=== PATIENT | female | born 1955 | race Caucasian/White ===

== ENCOUNTER 2018-06-20 19:02 | Emergency (ER) | payer BC ==
[2018-06-20] MEDS ORDERED: NS 0.9% 1000 ML* 1,000 ML IV ONE (20:21)
--- NOTE | 2018-06-20 20:24 | ED ---
Abdominal Pain/Female - HPI Summary HPI Summary: A 62 y/o female presents to ED c/o right-sided abdominal pain reaching 8/10 in severity. As per triage, "Pt c/o RUQ and RLQ abdominal pain for approximately 2 months. States she fell months ago and was relating the pain to her fall. States pain has now progressively gotten worse causing her to lose sleep last night". According to the patient she has been experiencing the intermittent abdominal pain for the past 1.5 days and describes it as a burning sensation. Patient denies any nausea, vomiting, diarrhea, constipation, chest pain or SOB. She noted that the pain does come in waves. She noted that the pain sometimes goes to her shoulder, but she has been experiencing that since she was diagnosis with mesenteric breast cancer. PMHx of mesenteric breast cancer, denies any renal calculi, cholecystectomy. - History of Current Complaint Chief Complaint: EDAbdPain Stated Complaint: RT SIDE ABD PAIN Time Seen by Provider: 06/20/18 20:00 Hx Obtained From: Patient Onset/Duration: Sudden Onset, Lasting Days, Still Present Timing: Intermittent Episode Lasting Severity Initially: Severe Severity Currently: Severe Pain Intensity: 8 Pain Scale Used: 0-10 Numeric Location: Other - Right-sided Radiates: Yes Radiates to: Back Character: Burning Aggravating Factor(s): Nothing Alleviating Factor(s): Nothing Associated Signs and Symptoms: Positive: Back Pain. Negative: Chest Pain, Constipation, Nausea, Vomiting, Diarrhea Allergies/Adverse Reactions: Allergies Allergy/AdvReac Type Severity Reaction Status Date / Time No Known Allergies Allergy Verified 06/20/18 19:07 Home Medications: Home Medications Ciprofloxacin TAB* [Cipro 500 MG TAB*] 500 mg PO BID 06/20/18 [History Confirmed 06/20/18] PMH/Surg Hx/FS Hx/Imm Hx Endocrine/Hematology History: Reports: Hx Thyroid Disease Denies: Hx Diabetes, Hx Systemic Lupus Erythematosus Cardiovascular History: Reports: Hx Hypertension Denies: Hx Congestive Heart Failure, Hx Pacemaker/ICD Respiratory History: Reports: Hx Asthma History: Denies: Hx Dialysis, Hx Renal Disease Musculoskeletal History: Reports: Hx Arthritis, Hx Back Problems Denies: Hx Rheumatoid Arthritis, Hx Osteoporosis Comment Only: Other Musculoskeletal History - flat feet Sensory History: Reports: Hx Contacts or Glasses Denies: Hx Hearing Aid Opthamlomology History: Reports: Hx Contacts or Glasses Psychiatric History: Denies: Hx Panic Disorder - Cancer History Cancer Type, Location and Year: Breast cancer dx 1999, reoccurance bone 2013 Hx Chemotherapy: Yes - ORAL EVERYDAY Hx Radiation Therapy: Yes - Surgical History Surgery Procedure, Year, and Place: 1999 LEFT MASTECTOMY w/ reconstruction ( SILICONE IMPLANT). 2006 HYSTERECTOMY. TONSILECTOMY Hx Anesthesia Reactions: No Infectious Disease History: No Infectious Disease History: Denies: Hx Clostridium Difficile, Hx Hepatitis, Hx Human Immunodeficiency Virus (HIV), Hx of Known/Suspected MRSA, Hx Shingles, Hx Tuberculosis, Hx Known/ Suspected VRE, Hx Known/Suspected VRSA, History Other Infectious Disease, Traveled Outside the [place] in Last 30 Days - Family History Known Family History: Positive: Cardiac Disease, Hypertension, Diabetes, Other - [place], CVA, BREAST CANCER, PANCREATIC CANCER - Social History Alcohol Use: Rare Substance Use Type: Reports: None Smoking Status (MU): Never Smoked Tobacco Review of Systems Negative: Fever Negative: Chest Pain Negative: Shortness Of Breath Positive: Abdominal Pain, Other - NEGATIVE: Constipation. Negative: Vomiting, Diarrhea, Nausea All Other Systems Reviewed And Are Negative: Yes Physical Exam - Summary Physical Exam Summary: VITAL SIGNS: Reviewed. GENERAL: Patient is a well-developed and nourished female who is lying comfortable in the stretcher. Patient is not in any acute respiratory distress. HEAD AND FACE: Normocephalic and atraumatic. EYES: PERRLA, EOMI x 2, No injected conjunctiva. EARS: Hearing grossly intact. Ear canals and tympanic membranes are WNL. MOUTH: Oropharynx within normal limits. NECK: Supple, trachea is midline, no adenopathy, no JVD. CHEST: Symmetric, no tenderness at palpation LUNGS: Clear to auscultation bilaterally. No wheezing or crackles. CVS: RRR, S1 and S2 present, no murmurs or gallops appreciated. ABDOMEN: Soft, RUQ tenderness. No signs of distention. Positive bowel sounds. No rebound no guarding, and no masses palpated. No abdominal bruit or pulsations. EXTREMITIES: FROM in all major joints, no edema, no cyanosis or clubbing. NEURO: Alert and oriented x 3. No acute neurological deficits. Speech is normal. SKIN: Dry and warm Triage Information Reviewed: Yes Vital Signs On Initial Exam: Initial Vitals Temp Pulse Resp BP Pulse Ox 98.2 F 106 16 164/83 98 06/20/18 19:04 06/20/18 19:04 06/20/18 19:04 06/20/18 19:04 06/20/18 19:04 Vital Signs Reviewed: Yes Diagnostics - Vital Signs Vital Signs Temp Pulse Resp BP Pulse Ox 06/20/18 19:04 98.2 F 106 16 164/83 98 - Laboratory Result Diagrams: 06/20/18 20:34 06/20/18 20:34 Lab Statement: Any lab studies that have been ordered have been reviewed, and results considered in the medical decision making process. - EKG 2041 Cardiac Rate: NL - 94 BPM EKG Rhythm: Sinus Rhythm EKG Interpretation: NO ST ELEVATIONS Abdominal Pain Fem Course/Dx - Course Course Of Treatment: This patient is a 62-year-old female who presents to the emergency department with a chief complaint of having right upper quadrant pain with radiation to the right lower abdomen and to the back. The patient has been present for approximately 2 months but in getting worse. Patient has past medical history significant for a stage IV breast cancer, spinal metastasis, hypertension, hypothyroidism and asthma. The patient denies any fever, positive nausea without vomiting. Denies any diarrhea or constipation. Blood work shows wbc's of 2.6, glucose 123, CRP of 8.07 and amylase of 21. The right upper quadrant ultrasound is pending. At this time the patient will be signed out to Dr. Hess at shift change. The patient is stable hemodynamically stable, she did not require any pain medications, she is alert and oriented 3. If the ultrasound is negative Dr. Hess will reassess the patient for the need of abdominopelvic CT or discharged home with follow-up with PCP as an outpatient. - Diagnoses Differential Diagnosis: Positive: Gall Bladder Disease Provider Diagnoses: Right lateral abdominal pain Discharge - Sign-Out/Discharge Documenting (check all that apply): Sign-Out Patient Signing out patient TO: Henry Buckley Receiving patient FROM: Emeterio Bloom - Discharge Plan Condition: Good Disposition: HOME Prescriptions: Hydrocodone/Acetaminophen [Vicodin 5-300 mg Tablet] 1 each PO Q4HR PRN #12 tablet MDD 4 tabs PRN Reason: Pain Patient Education Materials: Abdominal Pain (ED) Referrals: Terri Mejía MD [Primary Care Provider] - Additional Instructions: I would recommend asking your oncologist about getting a CCK HIDA scan to see if you have a functional gallbladder problem causing her pain. I have prescribed some painkillers to help in the interim. - Billing Disposition and Condition Condition: GOOD Disposition: Home - Attestation Statements Document Initiated by Bela: Yes Documenting Scribe: Anand Hermosillo Provider For Whom Bela is Documenting (Include Credential): Emeterio Bloom MD Scribe Attestation: I, Anand Hermosillo, scribed for Emeterio Bloom MD on 06/21/18 at 1125. Scribe Documentation Reviewed: Yes Provider Attestation: The documentation as recorded by the Anand arroyo accurately reflects the service I personally performed and the decisions made by me, Emeterio Bloom MD
[2018-06-20 20:41] LABS: ABS Basophils 0 10^3/ul (0-0.2); ABS Eosinophils 0 10^3/ul (0-0.6); ABS Lymphocytes 0.7 10^3/ul (1.0-4.8); ABS Monocytes 0.3 10^3/ul (0-0.8); ABS Neutrophils 1.6 10^3/ul (1.5-7.7); ABS Nucleated RBC 0 10^3/ul; Eosinophil % 1.3 % (0-6); Hematocrit 36 % (35-47); Hemoglobin 12.7 g/dl (12.0-16.0); Lymphocyte % 25.8 % (25-47); Mean Corpuscular HGB Conc 35 g/dl (31-36); Mean Corpuscular Hemoglobin 33 pg (27-31); Mean Corpuscular Volume 95 fL (80-97); Mean Platelet Volume 7.8 um3 (7.4-10.4); Nucleated Red Blood Cells % 0.4; Platelet Count 225 10^3/ul (150-450); Red Cell Distribution Width 16 % (10.5-15); White Blood Count 2.6 10^3/ul (3.5-10.8)
[2018-06-20 21:00] LABS: EGFR Non-African American 62.2 (>60)
--- NOTE | 2018-06-20 22:52 | RAD ---
EXAM: US Abdomen Limited, Right Upper Quadrant EXAM DATE/TIME: 06/20/18 (9:07pm) CLINICAL HISTORY: 62 year old female with epigastric / RUQ pain TECHNIQUE: Real-time ultrasound of the right upper quadrant with image documentation COMPARISON: US ABDOMEN (limited) of 03/26/18 FINDINGS: The liver is normal in size (16.6 cm length), with probable fatty infiltration. The gallbladder has normal wall thickness (1.8 mm), with no definite stones nor sludge seen. A non-shadowing mural polyp (11 mm size) is again seen along the posterior gallbladder wall (also noted 3 months ago). No pericholecystic fluid is appreciated. The sonographic Kelly's sign is reported to be (+). The CBD is top normal in caliber (4-5 mm diameter). The pancreas appears unremarkable (tail region obscured by bowel gas). The right kidney measures 11.1 cm in length, with no hydronephrosis appreciated. No ascites is seen. IMPRESSION: No definite evidence of acute cholecystitis. No gallstones nor sludge. Posterior gallbladder wall polyp (11 mm size) again seen. The sonographic Kelly's sign is reported to be (+) --- this is of unclear significance. See additional comments above.
--- NOTE | 2018-06-20 23:07 | PN ---
Progress Note - Progress Note Date of Service: 06/20/18 Note: SIGN-OUT RECEIVED FROM DR. WOOD AT SHIFT CHANGE PENDING GALLBLADDER U/S RESULTS. 2304: ED provider at bedside A 62 y/o F presents to ED with c/o 8 out of 10, acute on chronic, R-sided abd pain. Discussing U/S results with pt. DIAGNOSTICS: Gallbladder U/S as read by radiologist: IMPRESSION: No definite evidence of acute cholecystitis.No gallstones nor sludge. Posterior gallbladder wall polyp ( 11 mm size) again seen. The sonographic Kelly's sign is reported to be (+) --- this is of unclear significance. See additional comments above. ED provider has reviewed this report. COT: DX: DISPO: This is scribe, Malik Hilario, documenting for attending Dr. Henry Buckley MD. I, Dr. Buckley, personally performed the services described in this documentation as scribed in my presence and it is both accurate and complete. <Malik Hilario - Last Filed: 06/20/18 23:16> - Progress Note Note: Treatment: The patient is still having some right-sided abdominal pain. The history she is his knee is suggestive of biliary colic, but she does have a ultrasound showing no stones or other gallbladder abnormalities of note. She could have acalculous cholecystitis and I explained this entity to her and recommended that she ask her doctor about getting a CCK HIDA scan. I will order some pain medication for the interim. Diagnosis: Abdominal pain, possible acalculous cholecystitis Disposition: Home <Henry Buckley - Last Filed: 06/21/18 06:37>
[2018-06-20] MEDS ORDERED: oxyCODONE/Acetamin 5/325 MG* TAB PO ONE (23:15)
[2018-06-20 23:35] VITALS: BP 149/82
== END 2018-06-20 23:34 | disposition home or self-care (01) ==
LOC: ED 19:02
DX: R10.84 Generalized abdominal pain (principal); Z85.3 Personal history of malignant neoplasm of breast
CPT/HCPCS: 36415; 76705; 80053; 82150; 83605; 83690; 85025; 86140; 93005; 96360; 99282; A9270-GY

== ENCOUNTER 2021-07-10 16:41 | Inpatient (IN) ==
[2021-07-10] MEDS ORDERED: Clindamycin 900 MG/D5W BAG 900 MG/50 ML BAG IVPB ONE (18:02)
[2021-07-10 19:16] LABS: Hematocrit 24 % (35-47); Hemoglobin 7.5 g/dL (12.0-16.0); Mean Corpuscular HGB Conc 32 g/dL (31-36); Mean Corpuscular Hemoglobin 27 pg (27-31); Mean Corpuscular Volume 85 fL (80-97); Mean Platelet Volume 7.1 fL (7.4-10.4); Platelet Count 468 10^3/uL (150-450); Red Blood Count 2.78 10^6 /uL (3.70-4.87); Red Cell Distribution Width 20 % (10-15); White Blood Count 12.6 10^3/uL (3.5-10.8)
[2021-07-10 19:45] LABS: ABS Eosinophils 0.1 10^3/ul (0-0.6); ABS Lymphocytes 1.1 10^3/ul (1.0-4.8); ABS Monocytes 0.9 10^3/ul (0-0.8); ABS Neutrophils 10.4 10^3/ul (1.5-7.7); Anisocytosis 2+; Lymphocyte % 8.4 %; Nucleated Red Blood Cells % 0.2
[2021-07-10 19:49] LABS: Albumin 3.4 g/dL (3.2-5.2); C Reactive Protein 291.82 mg/L (<8.01); Calcium 9.7 mg/dL (8.6-10.3); Globulin 3.5 g/dL (2-4); Potassium 4.3 mmol/L (3.5-5.0); Total Bilirubin 0.5 mg/dL (0.2-1.0); Total Protein 6.9 g/dL (6.4-8.9)
[2021-07-10] MEDS ORDERED: Lactated Ringers 1000 ml BAG 1,000 ML IV ONE (20:37)
[2021-07-10] MEDS ORDERED: Enoxaparin 40 MG/0.4 ML SYR SUBCUT SCH (21:00)
[2021-07-10] MEDS ORDERED: Lactated Ringers 1000 ml BAG IV.FLUID IV ONE (21:37)
[2021-07-10] MEDS ORDERED: Lactated Ringers 1000 ml BAG 1,000 ML IV SCH (23:00)
[2021-07-10 23:14] LABS: Rapid COVID-19 Molecular Undetected (Undetected)
[2021-07-11] MEDS ORDERED: Vancomycin per Pharmacy 1 EA NOTE FOLLOW UP SCH (03:00)
[2021-07-11] MEDS ORDERED: Vancomycin 1,000 MG in NS 0.9% 250 ml 250 ML IVPB ONE (03:00)
[2021-07-11] MEDS: Vancomycin 1000 MG in NS 0.9% 250 ML IVPB SCH ×3 (04:27→19:35)
[2021-07-11] MEDS: Cholecalciferol (VIT D3) 1,000 unit TAB PO SCH (08:27)
[2021-07-11] MEDS: oxyCODONE/Acetamin 5/325 mg TAB PO PRN ×3 (08:28→19:42)
[2021-07-11 20:59] LABS: Hematocrit 20 % (35-47); Hemoglobin 6.7 g/dL (12.0-16.0); Mean Corpuscular HGB Conc 34 g/dL (31-36); Mean Corpuscular Hemoglobin 29 pg (27-31); Mean Corpuscular Volume 85 fL (80-97); Mean Platelet Volume 6.8 fL (7.4-10.4); Platelet Count 396 10^3/uL (150-450); Red Blood Count 2.34 10^6 /uL (3.70-4.87); Red Cell Distribution Width 20 % (10-15); White Blood Count 10.6 10^3/uL (3.5-10.8)
[2021-07-11] MEDS ORDERED: Lactated Ringers 1000 ml BAG 1,000 ML IV SCH (21:00)
[2021-07-11 21:14] LABS: Albumin 2.9 g/dL (3.2-5.2); Albumin/Globulin Ratio 0.9 (1-3); C Reactive Protein 253.97 mg/L (<8.01); Calcium 9.1 mg/dL (8.6-10.3); Globulin 3.1 g/dL (2-4); Potassium 4.2 mmol/L (3.5-5.0); Total Bilirubin 0.4 mg/dL (0.2-1.0)
[2021-07-11 21:28] LABS: ABS Eosinophils 0.1 10^3/ul (0-0.6); ABS Lymphocytes 0.9 10^3/ul (1.0-4.8); ABS Monocytes 0.7 10^3/ul (0-0.8); ABS Neutrophils 8.9 10^3/ul (1.5-7.7); Eosinophil % 0.7 %; Hypochromasia 2+; Lymphocyte % 8.3 %; Polychromasia 2+
[2021-07-12 02:51] LABS: Hematocrit 22 % (35-47); Hemoglobin 7.4 g/dL (12.0-16.0)
[2021-07-12] MEDS: Vancomycin 1000 MG in NS 0.9% 250 ML IVPB SCH ×2 (04:05→13:26)
[2021-07-12] MEDS ORDERED: ceFAZolin VIAL VIAL ONE (05:41)
[2021-07-12] MEDS ORDERED: Gentamicin ADULT 40 MG/ML VIAL (2 ML VIAL = 80 MG) ONE (05:41)
[2021-07-12] MEDS ORDERED: Povidone Iodine 5% OPTH 30 ML BTL ONE (05:41)
[2021-07-12] MEDS ORDERED: Bupivacaine 0.25% SDV 30 ML ONE (05:41)
[2021-07-12] MEDS ORDERED: Lidocaine 2% PF 5 ML VIAL ONE (06:31)
[2021-07-12] MEDS ORDERED: Propofol 10 MG/ML 20 ML BTL ONE (06:31)
[2021-07-12] MEDS ORDERED: Midazolam 2 mg/2 ml VIAL 1 mg/ml 2 ml VIAL (2 mg) ONE (06:31)
[2021-07-12] MEDS ORDERED: Ondansetron 4 mg VIAL 2 MG/ML 2 ml VIAL ONE (06:31)
[2021-07-12] MEDS ORDERED: fentaNYL 250 mcg/5 ml 50 MCG/ML 5 ml VIAL (250 MCG) ONE (06:31)
[2021-07-12] MEDS ORDERED: Dexamethasone IV 4 MG/ML VIAL 1 ml VIAL ONE (06:31)
[2021-07-12 06:34] LABS: Calcium 9.1 mg/dL (8.6-10.3); Hematocrit 21 % (35-47); Mean Corpuscular HGB Conc 33 g/dL (31-36); Mean Corpuscular Hemoglobin 28 pg (27-31); Mean Corpuscular Volume 85 fL (80-97); Mean Platelet Volume 7.1 fL (7.4-10.4); Platelet Count 434 10^3/uL (150-450); Potassium 4.3 mmol/L (3.5-5.0); Red Blood Count 2.48 10^6 /uL (3.70-4.87); Red Cell Distribution Width 20 % (10-15); White Blood Count 10.4 10^3/uL (3.5-10.8)
[2021-07-12] MEDS ORDERED: DiMENhydriNATE IV 50 mg/ml 1 ml VIAL IV PUSH PRN (08:17)
[2021-07-12] MEDS ORDERED: Ondansetron 4 mg VIAL 2 MG/ML 2 ml VIAL IV PRN (08:17)
[2021-07-12] MEDS ORDERED: Acetaminophen IV 1 GM/100ML 100 ML IV PRN (08:17)
[2021-07-12] MEDS ORDERED: Prochlorperazine 5 mg/ml 2 ml VIAL (10 mg) IV PRN (08:17)
[2021-07-12] MEDS ORDERED: HYDROmorphone 1 MG/1 ML SYRINGE IV PRN (08:17)
[2021-07-12] MEDS ORDERED: Naloxone 0.4 mg VIAL 0.4 mg/ml 1 ml VIAL IV PRN (08:17)
[2021-07-12] MEDS ORDERED: diPHENhydraMINE IV 50 MG/ML 1 ml VIAL (BENADRYL) IV PRN (08:17)
[2021-07-12 08:19] LABS: ABS Eosinophils 0.1 10^3/ul (0-0.6); ABS Monocytes 0.8 10^3/ul (0-0.8); ABS Neutrophils 8.5 10^3/ul (1.5-7.7); Anisocytosis 2+; Eosinophil % 0.6 %; Lymphocyte % 9.5 %
[2021-07-12] MEDS ORDERED: Acetaminophen IV 1 GM/100ML 100 ML IV ONE (08:20)
[2021-07-12] MEDS ORDERED: Sevoflurane BOTTLE ONE (08:33)
[2021-07-12] MEDS ORDERED: fentaNYL 100 mcg/2 ml 50 MCG/ML VIAL ONE (08:47)
[2021-07-12] MEDS: fentaNYL 100 mcg/2 ml 50 MCG/ML VIAL IV PRN ×2 (08:49→09:05)
[2021-07-12] MEDS: Cholecalciferol (VIT D3) 1,000 unit TAB PO SCH (10:13)
[2021-07-12] MEDS: oxyCODONE/Acetamin 5/325 mg TAB PO PRN ×3 (10:16→19:32)
[2021-07-12] MEDS ORDERED: Vancomycin Trough Check NOTE FOLLOW UP ONE (11:30)
[2021-07-12 13:18] LABS: Vancomycin Trough 14.9 mcg/mL
[2021-07-12] MEDS ORDERED: DARBEPOETIN ALFA ALBUMEN FREE SUBCUT ONE (13:30)
[2021-07-12] MEDS: ceFAZolin 2 GM in NS PREMIX 2 GM/100 ML BAG IVPB SCH (19:32)
[2021-07-13] MEDS: ceFAZolin 2 GM in NS PREMIX 2 GM/100 ML BAG IVPB SCH ×3 (03:58→21:15)
[2021-07-13] MEDS: oxyCODONE/Acetamin 5/325 mg TAB PO PRN (04:15)
[2021-07-13 05:45] LABS: Hematocrit 24 % (35-47); Mean Corpuscular HGB Conc 34 g/dL (31-36); Mean Corpuscular Hemoglobin 29 pg (27-31); Mean Corpuscular Volume 86 fL (80-97); Mean Platelet Volume 7.1 fL (7.4-10.4); Platelet Count 456 10^3/uL (150-450); Red Blood Count 2.77 10^6 /uL (3.70-4.87); Red Cell Distribution Width 19 % (10-15); White Blood Count 12.9 10^3/uL (3.5-10.8)
[2021-07-13 06:01] LABS: Calcium 9.4 mg/dL (8.6-10.3); Potassium 4.5 mmol/L (3.5-5.0)
[2021-07-13 06:33] LABS: ABS Lymphocytes 0.8 10^3/ul (1.0-4.8); ABS Monocytes 0.5 10^3/ul (0-0.8); ABS Neutrophils 11.7 10^3/ul (1.5-7.7); Lymphocyte % 5.8 %
[2021-07-13] MEDS ORDERED: Senna/Docusate 8.6/50 mg (NF) TAB PO PRN (08:39)
[2021-07-13] MEDS ORDERED: Magnesium Hydroxide LIQ 30 ML UDC PO PRN (08:44)
[2021-07-13] MEDS: Cholecalciferol (VIT D3) 1,000 unit TAB PO SCH (08:47)
[2021-07-13] MEDS ORDERED: Senna TAB 8.6 mg TAB PO PRN (12:46)
[2021-07-13] MEDS ORDERED: Docusate LIQ 100 MG/10 ML UDC PO PRN (12:47)
[2021-07-13] MEDS: Enoxaparin 40 MG/0.4 ML SYR SUBCUT SCH (18:26)
[2021-07-14] MEDS ORDERED: Morphine 2 MG/ML SYRINGE IV PRN (00:01)
[2021-07-14 04:47] LABS: Hematocrit 25 % (35-47); Hemoglobin 8.4 g/dL (12.0-16.0); Mean Corpuscular HGB Conc 33 g/dL (31-36); Mean Corpuscular Hemoglobin 29 pg (27-31); Mean Corpuscular Volume 86 fL (80-97); Mean Platelet Volume 6.9 fL (7.4-10.4); Platelet Count 435 10^3/uL (150-450); Red Blood Count 2.93 10^6 /uL (3.70-4.87); Red Cell Distribution Width 19 % (10-15); White Blood Count 7.9 10^3/uL (3.5-10.8)
[2021-07-14] MEDS: ceFAZolin 2 GM in NS PREMIX 2 GM/100 ML BAG IVPB SCH ×3 (05:01→21:09)
[2021-07-14 05:06] LABS: Calcium 9.2 mg/dL (8.6-10.3); Magnesium 2.1 mg/dL (1.9-2.7); Potassium 4.1 mmol/L (3.5-5.0)
[2021-07-14 05:20] LABS: ABS Eosinophils 0.1 10^3/ul (0-0.6); ABS Lymphocytes 0.9 10^3/ul (1.0-4.8); ABS Monocytes 0.4 10^3/ul (0-0.8); ABS Neutrophils 6.5 10^3/ul (1.5-7.7); Eosinophil % 0.8 %; Nucleated Red Blood Cells % 0.1
[2021-07-14] MEDS: oxyCODONE/Acetamin 5/325 mg TAB PO PRN ×3 (07:40→18:40)
[2021-07-14] MEDS: Cholecalciferol (VIT D3) 1,000 unit TAB PO SCH (07:40)
[2021-07-14] MEDS: Enoxaparin 40 MG/0.4 ML SYR SUBCUT SCH (18:39)
[2021-07-15] MEDS: ceFAZolin 2 GM in NS PREMIX 2 GM/100 ML BAG IVPB SCH ×3 (05:22→20:01)
[2021-07-15] MEDS: oxyCODONE/Acetamin 5/325 mg TAB PO PRN ×4 (05:28→21:58)
[2021-07-15 06:35] LABS: Hematocrit 27 % (35-47); Hemoglobin 8.8 g/dL (12.0-16.0); Mean Corpuscular HGB Conc 33 g/dL (31-36); Mean Corpuscular Hemoglobin 29 pg (27-31); Mean Corpuscular Volume 87 fL (80-97); Mean Platelet Volume 7.1 fL (7.4-10.4); Platelet Count 469 10^3/uL (150-450); Red Blood Count 3.05 10^6 /uL (3.70-4.87); Red Cell Distribution Width 19 % (10-15); White Blood Count 6.3 10^3/uL (3.5-10.8)
[2021-07-15] MEDS: Cholecalciferol (VIT D3) 1,000 unit TAB PO SCH (09:16)
[2021-07-15] MEDS: Enoxaparin 40 MG/0.4 ML SYR SUBCUT SCH (18:01)
[2021-07-16] MEDS ORDERED: Morphine 2 MG/ML SYRINGE IV PRN (00:01)
[2021-07-16] MEDS: ceFAZolin 2 GM in NS PREMIX 2 GM/100 ML BAG IVPB SCH ×3 (03:56→20:30)
[2021-07-16] MEDS: oxyCODONE/Acetamin 5/325 mg TAB PO PRN ×2 (05:48→20:30)
[2021-07-16] MEDS: Cholecalciferol (VIT D3) 1,000 unit TAB PO SCH (10:29)
[2021-07-16] MEDS: Enoxaparin 40 MG/0.4 ML SYR SUBCUT SCH (17:15)
[2021-07-17] MEDS: ceFAZolin 2 GM in NS PREMIX 2 GM/100 ML BAG IVPB SCH ×2 (04:03→12:49)
[2021-07-17] MEDS: oxyCODONE/Acetamin 5/325 mg TAB PO PRN (08:34)
[2021-07-17] MEDS: Cholecalciferol (VIT D3) 1,000 unit TAB PO SCH (08:34)
[2021-07-17] MEDS ORDERED: Bacitracin OINTMENT TUBE TOPICAL SCH (09:00)
[2021-07-17 16:32] VITALS: BP 123/68
== END 2021-07-17 17:59 | disposition home or self-care (01) | DRG 901 ==
LOC: ED 16:41 → SSU 21:15 → SUATTDRO 21:15 → SSU 07-11 00:23
PROVIDERS: ADMIT Internal Medicine; ATTEND Internal Medicine

== ENCOUNTER 2023-10-11 19:37 | Inpatient (IN) ==
[2023-10-11] MEDS: Ondansetron 4 mg VIAL 2 MG/ML 2 ml VIAL IV ONE (20:30)
[2023-10-11] MEDS: NS 0.9% 1000 ml BAG 2,000 ML IV ONE (20:30)
[2023-10-11] MEDS: Morphine 4 MG/ML VIAL (1 ml) IV ONE (20:46)
[2023-10-11] MEDS: fentaNYL 100 mcg/2 ml 50 MCG/ML VIAL IV SLOW PU ONE (20:53)
[2023-10-11 21:01] LABS: Hemoglobin 10.9 g/dL (11.5-14.3); Mean Corpuscular Hemoglobin 30.6 pg (27-33); Mean Corpuscular Hgb Conc 35.1 g/dL (31-36); Mean Corpuscular Volume 87.1 fL (80-97); Mean Platelet Volume 6.7 fL (7.5-11.2); Platelet Count 668 10^3/uL (150-450); Red Blood Count 3.56 10^6/uL (3.63-4.92); Red Cell Distribution Width 14.2 % (12-17); White Blood Count 3.9 10^3/uL (3.8-11.8)
[2023-10-11 21:12] LABS: INR 1.09 (0.83-1.13)
[2023-10-11 21:18] LABS: Albumin 4.2 g/dL (3.2-5.2); Albumin/Globulin Ratio 1.8 (1-3); C Reactive Protein 2.87 mg/L (<8.01); Calcium 8.7 mg/dL (8.6-10.3); Creatinine, Serum 0.56 mg/dL (0.51-0.95); Globulin 2.4 g/dL (2-4); Magnesium 2.2 mg/dL (1.9-2.7); Potassium 3.9 mmol/L (3.5-5.0); Total Bilirubin 0.7 mg/dL (0.2-1.0); Total Protein 6.6 g/dL (6.4-8.9); eGFR CKD-EPI 98.1 (>60)
[2023-10-11 21:22] LABS: ABS Lymphocytes 0.7 10^3/uL (1.0-4.8); ABS Neutrophils 3.1 10^3/uL (1.5-7.6); ABS Nucleated RBC 0.01 10^3/ul; Eosinophil % 0.6 %; Lymphocyte % 17.9 %; Nucleated Red Blood Cells % 0.2 %/100WBC (0.0-0.8)
[2023-10-11 22:34] LABS: Urine Appearance Clear; Urine Bilirubin Negative (Negative); Urine Blood Negative (Negative); Urine Color Yellow; Urine Glucose Negative (Negative); Urine Ketones Trace (Negative); Urine Nitrite Negative (Negative); Urine Protein Negative (Negative); Urine Specific Gravity 1.015 (1.002-1.030); Urine Urobilinogen Negative (Negative)
[2023-10-11] MEDS: Iohexol 350 (CONTRAST) 500 ML MDV IV ONE (23:17)
[2023-10-11] MEDS: Metoclopramide 5 MG/ML VIAL (10 mg) IV ONE (23:35)
[2023-10-12] MEDS: NS 0.9% 1000 ml BAG 1,000 ML IV SCH (02:06)
[2023-10-12] MEDS ORDERED: Polyethylene Glycol 3350 17 GM PACKET PO PRN (02:38)
[2023-10-12] MEDS ORDERED: Magnesium Hydroxide LIQ 30 ML UDC PO PRN (02:38)
[2023-10-12] MEDS ORDERED: Senna TAB 8.6 mg TAB PO PRN (02:38)
[2023-10-12] MEDS: Enoxaparin 40 MG/0.4 ML SYR SUBCUT SCH (06:40)
[2023-10-12] MEDS: Iohexol 350 (CONTRAST) 500 ML MDV IV ONE (06:50)
[2023-10-12] MEDS: Magnesium Hydroxide LIQ 30 ML UDC PO SCH (08:46)
[2023-10-12] MEDS: fentaNYL 100 mcg/2 ml 50 MCG/ML VIAL IV SLOW PU PRN (11:19)
[2023-10-12] MEDS: Ondansetron 4 mg VIAL 2 MG/ML 2 ml VIAL IV PRN (11:21)
[2023-10-12] MEDS: Dexamethasone IV 4 MG/ML VIAL 1 ml VIAL IV SLOW PU ONE (16:27)
[2023-10-12] MEDS: Acetaminophen IV 1 GM/100ML 1,000 MG/100 ML BAG IV PRN (20:30)
[2023-10-13] MEDS: Scopolamine 1 mg/72hr PATCH TRANSDERM SCH (12:43)
[2023-10-13] MEDS: Palonosetron 0.25 MG in NS 0.9% 50 ML 50 ML IVPB SCH (13:25)
[2023-10-13] MEDS: PALONOSETRON HCL 0.05 MG/ML (0.25 MG) SYRINGE (0.05 MG/ML) IV SCH (14:18)
[2023-10-13 15:17] LABS: Amylase 16 U/L (29-103); Lipase 23 U/L (11.0-82.0)
[2023-10-13 15:18] LABS: Calcium 9.2 mg/dL (8.6-10.3); Creatinine, Serum 0.59 mg/dL (0.51-0.95); Magnesium 2.2 mg/dL (1.9-2.7); eGFR CKD-EPI 96.9 (>60)
[2023-10-13] MEDS: Polyethylene Glycol 3350 17 GM PACKET PO SCH (16:59)
[2023-10-13 18:24] LABS: ABS Lymphocytes 0.5 10^3/uL (1.0-4.8); ABS Monocytes 0.1 10^3/uL (0.0-0.9); ABS Neutrophils 2.5 10^3/uL (1.5-7.6); Eosinophil % 0.1 %; Hematocrit 31.5 % (35-45); Hemoglobin 11.1 g/dL (11.5-14.3); Lymphocyte % 17.2 %; Mean Corpuscular Hemoglobin 30.6 pg (27-33); Mean Corpuscular Hgb Conc 35.1 g/dL (31-36); Mean Platelet Volume 7.2 fL (7.5-11.2); Nucleated Red Blood Cells % 0.1 %/100WBC (0.0-0.8); Platelet Count 677 10^3/uL (150-450); Red Blood Count 3.62 10^6/uL (3.63-4.92); Red Cell Distribution Width 14.6 % (12-17); White Blood Count 3.1 10^3/uL (3.8-11.8)
[2023-10-13] MEDS: Senna TAB 8.6 mg TAB PO SCH (23:02)
[2023-10-14 08:25] LABS: ABS Monocytes 0.2 10^3/uL (0.0-0.9); ABS Neutrophils 2.5 10^3/uL (1.5-7.6); Hematocrit 32.9 % (35-45); Hemoglobin 11.6 g/dL (11.5-14.3); Lymphocyte % 27.7 %; Mean Corpuscular Hemoglobin 30.7 pg (27-33); Mean Corpuscular Hgb Conc 35.2 g/dL (31-36); Mean Corpuscular Volume 87.2 fL (80-97); Mean Platelet Volume 6.6 fL (7.5-11.2); Nucleated Red Blood Cells % 0.1 %/100WBC (0.0-0.8); Platelet Count 688 10^3/uL (150-450); Red Blood Count 3.77 10^6/uL (3.63-4.92); Red Cell Distribution Width 14.5 % (12-17); White Blood Count 3.7 10^3/uL (3.8-11.8)
[2023-10-14 08:43] LABS: Calcium 9.1 mg/dL (8.6-10.3); Creatinine, Serum 0.64 mg/dL (0.51-0.95); Magnesium 2.2 mg/dL (1.9-2.7); Potassium 4.1 mmol/L (3.5-5.0)
[2023-10-14] MEDS ORDERED: Ondansetron ODT 4 mg TAB 4 MG TAB SL PRN (10:02)
[2023-10-14] MEDS ORDERED: Morphine ORAL CONCENTRATE 5 MG/0.25 ML ORAL.SYRIN SL PRN (10:11)
[2023-10-14] MEDS ORDERED: fentaNYL PATCH 12 MCG/HR 1 PATCH TRANSDERM SCH (11:00)
[2023-10-14 11:19] VITALS: BP 139/76
[2023-10-14] MEDS ORDERED: fentaNYL Patch Check Q Shift NOTE FOLLOW UP SCH (19:00)
== END 2023-10-14 12:24 | disposition home or self-care (01) | DRG 598 ==
LOC: ED 19:37 → EDHOLD 10-12 01:07 → SUATTDRO 10-12 01:07 → MED 10-12 17:52
PROVIDERS: ADMIT Internal Medicine; ATTEND Student in an Organized Health Care Education/Training Program